=== PATIENT | female | born 1970 | race Caucasian/White ===

== ENCOUNTER 2018-11-13 07:01 | Day surgery (SDC) | payer BC, MEDICARE ==
[2018-11-09 10:45] VITALS: BMI 32.4
[~2018-11-13 07:01] MED LIST: LACTATED RINGERS 1,000 ML IV SCH
[2018-11-13 07:21] VITALS: TEMP 96
[2018-11-13] MEDS ORDERED: MIDAZOLAM 2 MG/2 ML VIAL ONE (07:49)
[2018-11-13] MEDS ORDERED: fentaNYL (PF) 50 MCG/ML 2 ML AMP ONE (07:49)
[2018-11-13] MEDS ORDERED: PROPOFOL 10 MG/ML 20 ML VIAL IV ONE (07:49)
[2018-11-13 08:34] VITALS: BP 132/86; PULSE 66; RESP 18
--- NOTE | 2018-11-13 08:51 | P.GSHP ---
History of Present Illness H&P Date: 11/13/18 Chief Complaint: Screening colonoscopy, diarrhea This a 48-year-old female who presents today for screening colonoscopy. Patient issues with diarrhea. Past Medical History Past Medical History: Hyperlipidemia, Seizure Disorder, Thyroid Disorder Additional Past Medical History / Comment(s): frequent diarrhea, hx closed head injury years ago, had seizure after that, restless leg, History of Any Multi-Drug Resistant Organisms: None Reported Past Surgical History: Orthopedic Surgery, Uterine Ablation Additional Past Surgical History / Comment(s): rt ankle plate and screws, left wrist, ear sx as child, hx of trach with closed head injury, Past Anesthesia/Blood Transfusion Reactions: No Reported Reaction Smoking Status: Never smoker Medications and Allergies Home Medications Medication Instructions Recorded Confirmed Type ARIPiprazole [Abilify] 10 mg PO DAILY 11/09/18 11/09/18 History Atorvastatin Calcium [Lipitor] 10 mg PO HS 11/09/18 11/09/18 History Cholecalciferol (Vitamin D3) 2,000 unit PO DAILY 11/09/18 11/09/18 History [Vitamin D3] Cholecalciferol [Vitamin D3 (25 1,000 unit PO DAILY 11/09/18 11/09/18 History Mcg = 1000 Iu)] Cyanocobalamin [Vitamin B-12] 500 mcg PO DAILY 11/09/18 11/09/18 History Desvenlafaxine Succinate [Pristiq] 50 mg PO DAILY 11/09/18 11/09/18 History Gabapentin [Neurontin] 1,600 mg PO HS 11/09/18 11/09/18 History Gabapentin [Neurontin] 800 mg PO QAM 11/09/18 11/09/18 History Galantamine HBr [Razadyne ER] 16 mg PO DAILY 11/09/18 11/09/18 History Levothyroxine Sodium [Synthroid] 50 mcg PO QAM 11/09/18 11/09/18 History Multivitamins, Thera [Multivitamin 1 tab PO DAILY 11/09/18 11/09/18 History (formulary)] levETIRAcetam [Keppra] 1,000 mg PO QAM 11/09/18 11/09/18 History levETIRAcetam [Keppra] 2,000 mg PO 11/09/18 11/09/18 History rOPINIRole HCL [Requip] 1 mg PO HS 11/09/18 11/09/18 History traZODone HCL 50 mg PO HS 11/09/18 11/09/18 History Allergies Allergy/AdvReac Type Severity Reaction Status Date / Time No Known Allergies Allergy Verified 11/09/18 10:30 Surgical - Exam Vital Signs Temp Pulse Resp BP Pulse Ox 96.0 F L 59 L 14 132/73 99 11/13/18 07:20 11/13/18 07:20 11/13/18 07:20 11/13/18 07:20 11/13/18 07:20 - General well developed, well nourished, no distress - Eyes PERRL - ENT normal pinna - Neck no masses - Respiratory normal expansion - Cardiovascular Rhythm: regular - Abdomen Abdomen: soft, non tender Assessment and Plan Assessment: Diarrhea, we'll perform screening colonoscopy.
--- NOTE | 2018-11-13 09:00 | P.OP ---
Date of Procedure: 11/13/18 Preoperative Diagnosis: Diarrhea Screening colonoscopy Postoperative Diagnosis: Right colon polyp Diverticulosis External hemorrhoids Procedure(s) Performed: Colonoscopy Anesthesia: MAC Surgeon: Zeke Aguilar Pathology: other (Right colon polyp) Condition: stable Disposition: PACU Description of Procedure: Patient's placed on the operative table in the lateral position. She received IV sedation. Digital rectal exam was performed which revealed external hemorrhoids. The colonoscope was placed patient anus passed throughout the entire colon. The ileocecal valve visualized. Cecum appeared normal. In the sitting colon there was a small polyp. This removed with snare. The transverse colon was normal. In the sigmoid and descending colon there was moderate diverticular changes. Scope was then brought back the rectum and this appeared normal. Scope was withdrawn for patient.
== END 2018-11-13 09:00 | disposition home or self-care (01) ==
LOC: ORWHC2ENDO 07:01
PROVIDERS: ATTEND Surgery
DX: D12.2 Benign neoplasm of ascending colon (principal); K57.30 Diverticulosis of large intestine without perforation or abscess without bleeding; R19.7 Diarrhea, unspecified; K64.4 Residual hemorrhoidal skin tags; E78.5 Hyperlipidemia, unspecified; G40.909 Epilepsy, unspecified, not intractable, without status epilepticus; E07.9 Disorder of thyroid, unspecified; G25.81 Restless legs syndrome; Z87.820 Personal history of traumatic brain injury; Z79.890 Hormone replacement therapy; Z79.899 Other long term (current) drug therapy
CPT/HCPCS: 45385; 88305; J2250; J3010; J2704

== ENCOUNTER → 2021-05-05 | Outpatient (CLI) | payer BC, MEDICARE ==
--- NOTE | 2021-05-06 10:23 | MM ---
Reason for exam: screening (asymptomatic). Last mammogram was performed 2 years and 5 months ago. History: Family history of breast cancer in paternal grandmother and breast cancer in 2 maternal aunts. Physical Findings: Nurse did not find any significant physical abnormalities on exam. MG 3D Screening Mammo W/Cad Bilateral CC and MLO view(s) were taken. Prior study comparison: November 20, 2018, mammogram, performed at [facility]. April 13, 2017, mammogram, performed at [facility]. There are scattered fibroglandular densities. There is no discrete abnormality. No significant changes when compared with prior studies. ASSESSMENT: Negative, BI-RAD 1 RECOMMENDATION: Routine screening mammogram of both breasts in 1 year.
== END | disposition home or self-care (01) ==
LOC: RADMAMWWP 09:19
PROVIDERS: ATTEND Family Medicine
DX: Z08 Encounter for follow-up examination after completed treatment for malignant neoplasm (principal); Z80.3 Family history of malignant neoplasm of breast
CPT/HCPCS: 77063; 77067

== ENCOUNTER 2022-02-04 07:37 | Day surgery (SDC) | payer BC, MEDICARE ==
[2022-02-03 09:22] VITALS: BMI 32.2
[~2022-02-04 07:37] MED LIST changes: +LIDOCAINE 1% (10MG/ML) FOR IV START INTRADERMA PRN
[2022-02-04 08:32] VITALS: TEMP 97
[2022-02-04] MEDS ORDERED: PROPOFOL 10 MG/ML 20 ML VIAL IV ONE (08:49)
--- NOTE | 2022-02-04 08:52 | P.GSHP ---
History of Present Illness H&P Date: 02/04/22 Chief Complaint: History of colon polyps This a 52-year-old female who presents today for colonoscopy. Patient's. History of colon polyps. Past Medical History Past Medical History: Hearing Disorder / Deafness, Hyperlipidemia, Seizure Disorder, Thyroid Disorder Additional Past Medical History / Comment(s): Frequent diarrhea. Hx closed head injury years ago, had seizure after that, none since then. Restless leg. Hard of hearing. Severe motion sickness. History of Any Multi-Drug Resistant Organisms: None Reported Past Surgical History: Ear Surgery, Orthopedic Surgery, Uterine Ablation Additional Past Surgical History / Comment(s): Right ankle plate and screws, left wrist, hx of trach with closed head injury, colonoscopy. Past Anesthesia/Blood Transfusion Reactions: No Reported Reaction, Motion Sickness Additional Past Anesthesia/Blood Transfusion Reaction / Comment(s): Severe motion sickness. Past Psychological History: Anxiety, Bipolar, Depression Smoking Status: Never smoker Past Alcohol Use History: Occasional Past Drug Use History: None Reported - Past Family History Sister(s) Family Medical History: Cancer Additional Family Medical History / Comment(s): Thyroid cancer. Medications and Allergies Home Medications Medication Instructions Recorded Confirmed Type ARIPiprazole [Abilify] 10 mg PO DAILY 11/09/18 02/03/22 History Atorvastatin Calcium [Lipitor] 10 mg PO HS 11/09/18 02/03/22 History Cholecalciferol (Vitamin D3) 2,000 unit PO DAILY 11/09/18 02/03/22 History [Vitamin D3] Galantamine HBr [Razadyne ER] 16 mg PO DAILY 11/09/18 02/03/22 History Levothyroxine Sodium [Synthroid] 50 mcg PO QAM 11/09/18 02/03/22 History Multivitamins, Thera [Multivitamin 1 tab PO DAILY 11/09/18 02/03/22 History (formulary)] levETIRAcetam [Keppra] 1,000 mg PO BID 11/09/18 02/03/22 History Magnesium 250 mg PO DAILY 02/03/22 02/03/22 History Melatonin 5 mg PO HS PRN 02/03/22 02/03/22 History OLANZapine [ZyPREXA] 2.5 mg PO QAM 02/03/22 02/03/22 History OXcarbazepine [Trileptal] 300 mg PO BID 02/03/22 02/03/22 History Pantoprazole [Protonix] 40 mg PO DAILY 02/03/22 02/03/22 History Promethazine [Phenergan] 25 mg PO DIRECTED PRN 02/03/22 02/03/22 History Raloxifene [Evista] 60 mg PO DAILY 02/03/22 02/03/22 History rOPINIRole HCL [Requip] 2 mg PO 1900 02/03/22 02/03/22 History Allergies Allergy/AdvReac Type Severity Reaction Status Date / Time No Known Allergies Allergy Verified 02/04/22 08:20 Surgical - Exam Vital Signs Temp Pulse Resp BP Pulse Ox 97.0 F L 61 18 153/87 99 02/04/22 08:18 02/04/22 08:18 02/04/22 08:18 02/04/22 08:18 02/04/22 08:18 - General well developed, well nourished - Eyes PERRL - ENT normal pinna - Neck no masses - Respiratory normal expansion - Cardiovascular Rhythm: regular - Abdomen Abdomen: soft, non tender Assessment and Plan Assessment: History of colon polyps. We'll perform colonoscopy.
--- NOTE | 2022-02-04 09:07 | P.OP ---
Date of Procedure: 02/04/22 Preoperative Diagnosis: History: Polyps Postoperative Diagnosis: Moderate diverticulosis Procedure(s) Performed: Colonoscopy Anesthesia: MAC Surgeon: Zeke Aguilar Pathology: none sent Condition: stable Disposition: PACU Description of Procedure: The patient's placed on the endoscopy table in the lateral position. She received IV sedation. Digital rectal exam performed which revealed no ebonized. Flexible colonoscope was then placed patient anus and passed throughout the entire colon. The ileocecal valve was visually is. The cecum, ascending and transverse colon appeared normal. The descending and sigmoid colon had extensive diverticular changes. The scope was then brought back the rectum and this appeared normal. Scope withdrawn for patient.
[2022-02-04 09:23] VITALS: BP 178/96; PULSE 74; RESP 16
== END 2022-02-04 10:04 | disposition home or self-care (01) ==
LOC: ORWHC2ENDO 07:37
PROVIDERS: ATTEND Surgery
DX: Z86.010 Personal history of colon polyps (principal); Z12.11 Encounter for screening for malignant neoplasm of colon; H91.90 Unspecified hearing loss, unspecified ear; E78.5 Hyperlipidemia, unspecified; G40.909 Epilepsy, unspecified, not intractable, without status epilepticus; E07.9 Disorder of thyroid, unspecified; Z87.820 Personal history of traumatic brain injury; A08.8 Other specified intestinal infections; G25.81 Restless legs syndrome; F41.9 Anxiety disorder, unspecified; F32.A Depression, unspecified; Z80.8 Family history of malignant neoplasm of other organs or systems; Z79.890 Hormone replacement therapy; Z79.899 Other long term (current) drug therapy
CPT/HCPCS: 81025; J2704; G0105; 45378

== ENCOUNTER → 2024-01-05 | Outpatient (CLI) | payer BC, MEDICARE ==
--- NOTE | 2024-01-05 11:56 | BD ---
EXAMINATION TYPE: Axial Bone Density DATE OF EXAM: 01/05/2024 CLINICAL HISTORY: 53 years old Female. ICD-10 CODE: Z78.0 ASYMP [place] Height: 63.25 Weight: 198 FRAX RISK QUESTIONS: Family History (Parent hip fracture): no History of Fracture in Adulthood: yes Secondary Osteoporosis: no RISK FACTORS HISTORY OF: History of left Wrist Fracture: yes When: age 45 Surgery to Wrist (left):yes When: age 45 MEDICATIONS: Thyroid Medications: yes Which medication: Synthroid How Lon+ years Osteoporosis Medications: yes Which medication: Evista How Lon+ years EXAM MEASUREMENTS: Bone mineral densitometry was performed using the [employer] System. Bone mineral density as measured about the Lumbar spine is: ----- L1-L4(G/cm2): 1.015 T Score Values are as follows: ----- L1: -1.6 ----- L2: -1.7 ----- L3: -1.1 ----- L4: -1.4 ----- L1-L4: -1.4 Z Score Values are as follows: ----- L1: -1.8 ----- L2: -1.9 ----- L3: -1.3 ----- L4: -1.6 ----- L1-L4: -1.6 Bone mineral density baseline Bone mineral density about the R hip (g/cm2): 0.948 Bone mineral density about the L hip (g/cm2): 0.963 T Score values are as follows: -----R Neck: -1.9 -----L Neck: -1.9 -----R Total: -0.5 -----L Total: -0.4 Z Score values are as follows: -----R Neck: -1.5 -----L Neck: -1.5 -----R Total: -0.5 -----L Total: -0.4 Bone mineral density baseline FRAX%s: The graph provided illustrates a 11.2% chance for a major osteoporotic fx and a 1.4% chance f or the hips probability for fx in 10 years time. IMPRESSION: Osteopenia (T Score between -2.5 and -1). There is slightly increased risk of fracture and the patient may be considered for treatment. Re-Screen 2-5 years. NOTE: T-SCORE=SD OF THE YOUNG ADULT MEAN.
--- NOTE | 2024-01-06 10:02 | MM ---
Reason for Exam: Screening (asymptomatic). Last mammogram was performed 2 year(s) and 8 month(s) ago. Patient History: Menarche at age 13. First Full-Term at age 24. Hysterectomy at age 44. Paternal grandmother had breast cancer. Maternal aunt had breast cancer. Maternal aunt had breast cancer. Risk Values: Deneen 5 year model risk: 0.9%. NCI Lifetime model risk: 7.8%. Prior Study Comparison: 04/13/2017 Screening Mammogram, [facility]. 11/20/2018 Screening Mammogram, [facility]. 05/05/2021 Bilateral Screening Mammogram, [facility]. Tissue Density: There are scattered areas of fibroglandular density. Findings: Analyzed By CAD. Asymmetric density 13.3 cm from the nipple seen only on the right MLO view. Additional views of the right breast are to include a spot compression right MLO view and a true lateral view and a rolled medial CC view. Left breast is free of mass or suspicious microcalcifications. Overall Assessment: Incomplete: need additional imaging evaluation, BI-RAD 0 Management: Diagnostic Mammogram of the right breast. . Patient should continue monthly self-breast exams. A clinical breast exam by your physician is recommended on an annual basis. This exam should not preclude additional follow-up of suspicious palpable abnormalities. Note on Deneen scores and lifetime risk: 1. A Deneen score greater than 3% is considered moderate risk. If this is the case, consider specialist referral to assess eligibility for a risk reducing agent. 2. If overall lifetime risk for the development of breast cancer is 20% or higher, the patient may qualify for future screening with alternating mammogram and breast MRI. Electronically signed and approved by: Moises Del Rosario M.D. Radiologis
== END | disposition home or self-care (01) ==
LOC: RADMAMWWP 09:25
PROVIDERS: ATTEND Family Medicine
DX: Z12.31 Encounter for screening mammogram for malignant neoplasm of breast (principal); R92.323 Mammographic fibroglandular density, bilateral breasts; M85.89 Other specified disorders of bone density and structure, multiple sites; Z80.3 Family history of malignant neoplasm of breast; Z78.0 Asymptomatic menopausal state
CPT/HCPCS: 77067; 77080

== ENCOUNTER → 2024-02-21 | Outpatient (CLI) | payer BC, MEDICARE ==
--- NOTE | 2024-02-21 08:48 | MM ---
Reason for Exam: Additional evaluation requested from abnormal screening. Last screening mammogram was performed 2 month(s) ago. Patient History: Menarche at age 13. Patient has no children. Hysterectomy at age 44. Paternal grandmother had breast cancer. Maternal aunt had breast cancer. Maternal aunt had breast cancer. Risk Values: Deneen 5 year model risk: 1.2%. NCI Lifetime model risk: 9.4%. Tissue Density: Right: There are scattered areas of fibroglandular density. Findings: Analyzed By CAD. Asymmetric density does not persist upon further spot compression imaging. Overall Assessment: Negative, BI-RAD 1 Management: Screening Mammogram of both breasts in 1 year. . Results were given to the patient verbally at the time of exam. Patient should continue monthly self-breast exams. A clinical breast exam by your physician is recommended on an annual basis. This exam should not preclude additional follow-up of suspicious palpable abnormalities. Note on Deneen scores and lifetime risk: 1. A Deneen score greater than 3% is considered moderate risk. If this is the case, consider specialist referral to assess eligibility for a risk reducing agent. 2. If overall lifetime risk for the development of breast cancer is 20% or higher, the patient may qualify for future screening with alternating mammogram and breast MRI. Electronically signed and approved by: Moises Del Rosario M.D. Radiologis
== END | disposition home or self-care (01) ==
LOC: RADMAMWWP 08:14
PROVIDERS: ATTEND Family Medicine
DX: R92.8 Other abnormal and inconclusive findings on diagnostic imaging of breast
CPT/HCPCS: 77061; 77065